=== PATIENT | male | born 1945 | race Hispanic/Latino ===

== ENCOUNTER → 2019-08-16 | Outpatient (CLI) | payer MEDICARE ==
--- NOTE | 2019-08-03 10:53 | Diagnostic Imaging Report ---
Left hip 2 views History: Left hip pain after walking Comparison: None Findings: See impression Impression: No acute fracture, subluxation, lytic or blastic lesions, significant soft tissue abnormality. Mild degenerative changes of the left hip joint. Signed by: Scotty Philip MD on 08/03/2019 10:50 AM
[~2019-08-16] MED LIST: LIDOCAINE HCL 2% LOCAL INJ 5 ML SDV VIAL INJ ONE; PROPOFOL IV EMULSION 10 MG/ML 20 ML VIAL ONE
[2019-08-16 12:26] LABS: BASOPHILS % 0.4 % (0.0-1.0); EOSINOPHILS # (AUTO) 0.4 (0.0-0.4); EOSINOPHILS % 4.4 % (0.0-6.0); HEMOGLOBIN 13.3 g/dL (14.0-18.0); LYMPHOCYTES # (AUTO) 1.1 (1.0-3.2); LYMPHOCYTES % 11.4 % (18.0-39.1); MEAN CORPUSCULAR HGB CONC 31.7 g/dL (31-35); MEAN CORPUSCULAR VOLUME 94.8 fL (81-99); MONOCYTES # (AUTO) 0.8 (0.2-0.8); MONOCYTES % 8.8 % (4.4-11.3); NEUTROPHILS # (AUTO) 7.1 (2.1-6.9); NEUTROPHILS % 74.5 % (38.7-80.0); PLATELET COUNT 291 x10e3/uL (140-360); RED BLOOD COUNT 4.43 x10e6/uL (4.3-5.7); RED CELL DISTRIBUTION WIDTH 13.3 % (11.7-14.4)
[2019-08-16 12:58] LABS: ANION GAP 16.3 mmol/L (8-16); CALCIUM 9.7 mg/dL (8.4-10.2); CREATININE, SERUM 1.44 mg/dL (0.72-1.25); POTASSIUM 4.3 mmol/L (3.5-5.1)
--- NOTE | 2019-08-16 12:59 | Diagnostic Imaging Report ---
EXAM: CHEST 2 VIEWS DATE: 08/16/2019 12:29 PM INDICATION: Sciatica, preprocedural examination COMPARISON: None FINDINGS: The trachea is midline. Air-filled retrocardiac opacity noted compatible with moderate-sized hiatal hernia. Suspected subcentimeter calcified granuloma noted within the left midlung zone. The lungs are otherwise symmetrically expanded without evidence for focal consolidation, pneumothorax, or pleural effusion. The cardiomediastinal silhouette is within normal limits. No acute osseous abnormality is identified. The lungs are otherwise symmetrically expanded without evidence for focal consolidation IMPRESSION: No acute cardiopulmonary process identified. Hiatal hernia. Signed by: Dr. Bony Gilman MD on 08/16/2019 12:56 PM
--- NOTE | 2019-08-16 15:55 | Diagnostic Imaging Report ---
History: Left hip and leg pain Comparison studies: X-ray of the hip 08/06/2019 Technique: Sagittal, coronal and axial T2 , sagittal T1 and IR, axial spin density oblique. Intravenous contrast: None Findings: Number of lumbar vertebral bodies:5 Alignment: Normal lordosis.Mild dextroscoliosis centered at L2-L3 with corrective levoscoliosis centered at L3-L4. Soft tissues: No T2 paraspinal hyperintense inflammatory changes. Paraspinal muscles: No signal abnormalities. No atrophy. Lower thoracic cord:Normal in signal and morphology. The tip of the conus is at T12-L1. Cauda equina: No masses. No arachnoiditis. Vertebrae: Normal in height and signal intensity. No vertebral body compression fractures, infection or neoplasm. Degenerative changes: L1-L2: Disc degeneration with loss of T2 signal and decreased intervertebral space. Asymmetric left disc bulge with patent canal, mild right and moderate left foraminal narrowing. L2-L3: Disc degeneration with loss of T2 signal. Asymmetric left disc bulge results in no significant canal stenosis and mild bilateral foraminal narrowing. L3-L4: Disc degeneration with loss of T2 signal. L3 inferior endplates Schmorl node with adjacent edema. Diffuse disc bulge and mild facet hypertrophy results in no significant canal stenosis and mild bilateral foraminal narrowing. L4-L5: Disc degeneration with loss of T2 signal and decreased intervertebral space. Mild Modic type I changes towards the right endplate. Diffuse disc bulge and mild facet hypertrophy without significant canal stenosis and mild bilateral foraminal narrowing. L5-S1: Disc degeneration with loss of T2 signal. Mild diffuse disc bulge and mild facet hypertrophy without significant canal stenosis and mild bilateral foraminal narrowing. Additional findings: Edema signal at the left sacral ala with associated nondisplaced fracture . IMPRESSION: Nondisplaced subacute fracture at the left sacral ala, and likely related to insufficiency. Moderate degenerative left foraminal narrowing at L1-L2. Other degenerative changes without significant (moderate or severe) canal stenosis or foraminal narrowing. Signed by: DR Roman Riggins M.D. on 08/16/2019 3:52 PM
--- NOTE | 2019-08-17 10:18 | NUR ---
CALLED PATIENT FOR FOLLOWUP. PT STATES NO ADVERSE REACTIONS FROM ANESTHESIA FEELS GREAT AND IS GOING TO SEE MD THIS AFTERNOON. NO C/O VOICED
== END ==
LOC: MRI 08-03 09:37
PROVIDERS: ATTEND Emergency Medicine
DX: M25.552 Pain in left hip (principal); M54.32 Sciatica, left side
CPT/HCPCS: 36415; 71046; 72148; 73502; 80048; 85025; 87635; 93005; J2001; J2704

== ENCOUNTER → 2022-09-16 | Outpatient (CLI) | payer MEDICARE | LOC: MRI 13:12 | PROVIDERS: ATTEND Emergency Medicine | DX: M51.36 Other intervertebral disc degeneration, lumbar region (principal); M54.50 Low back pain, unspecified; M48.061 Spinal stenosis, lumbar region without neurogenic claudication | CPT/HCPCS: 72148 ==

== ENCOUNTER → 2022-09-26 | Outpatient (CLI) | payer MEDICARE | LOC: RAD 11:17 | PROVIDERS: ATTEND Emergency Medicine | DX: R07.9 Chest pain, unspecified (principal) | CPT/HCPCS: 71046 ==